=== PATIENT | female | born 2000 | race Hispanic/Latino ===

== ENCOUNTER 2022-04-04 00:20 | Emergency (ER) | payer MEDICAID, SELFPAY ==
[2022-04-04] MEDS ORDERED: predniSONE 20 MG TAB ONE (04:06)
[2022-04-04] MEDS ORDERED: Albuterol Sulfate 2.5 mg/0.5 ml Neb ONE (05:25)
[2022-04-04] MEDS ORDERED: Albuterol Sulfate 2.5 mg/3 ml Neb ONE (05:25)
== END 2022-04-04 06:30 | disposition home or self-care (01) ==
LOC: ERS 00:20
DX: J45.901 Unspecified asthma with (acute) exacerbation (principal)
CPT/HCPCS: 71046; 94644; J7512; J7611; J7620

== ENCOUNTER 2022-07-22 10:16 | Emergency (ER) | payer MEDICAID, OTHER ==
[2022-07-22] MEDS ORDERED: Lidocaine 1% w/Epinephrine 1:100K 20 ML VIAL ONE (11:10)
[2022-07-22] MEDS ORDERED: Boostrix 0.5 ML (Tdap) VIAL (>/=7 yrs of age) ONE (11:36)
== END 2022-07-22 11:54 | disposition home or self-care (01) ==
LOC: ERS 10:16
DX: S31.040A Puncture wound with foreign body of lower back and pelvis without penetration into retroperitoneum, initial encounter (principal); W45.8XXA Other foreign body or object entering through skin, initial encounter
CPT/HCPCS: 10120; 90471; 90715